=== PATIENT | female | born 1965 | race Caucasian/White ===

== ENCOUNTER 2023-12-26 15:57 | Inpatient (IN) | payer MEDICAID ==
[~2023-12-26] VITALS: Ht 165.1 cm; Wt 65.4 kg
[2023-12-26] MEDS: IV NS 0.9% 1,000 ML BAG IV ONE (16:45)
[2023-12-26 16:50] LABS: BASOPHILS % (AUTO) 0.4 % (0.0-2.0); EOSINOPHILS % (AUTO) 0.4 % (0.0-6.0); HEMATOCRIT 24 % (33-45); HEMOGLOBIN 8.4 g/dL (11.5-14.8); LYMPHOCYTES # (AUTO) 0.7 K/uL (0.8-4.8); LYMPHOCYTES % (AUTO) 7.7 % (20.0-44.0); MEAN CORPUSCULAR HEMOGLOBIN 38 PG (26.0-33.0); MEAN CORPUSCULAR HGB CONC 35 g/dl (31.0-36.0); MEAN CORPUSCULAR VOLUME 111 fL (82-100); MONOCYTES # (AUTO) 0.4 K/uL (0.1-1.30); NEUTROPHILS # (AUTO) 7.6 K/uL (1.8-8.9); NEUTROPHILS % (AUTO) 86.5 % (43.0-81.0); PLATELET COUNT (AUTO) 376 K/uL (150-450); RED BLOOD CELL COUNT(AUTO) 2.19 MIL/uL (4.0-5.2); RED CELL DISTRIBUTION WIDTH 17.9 % (11.5-15.0); WHITE BLOOD COUNT (AUTO) 8.8 K/uL (4.3-11.0)
[2023-12-26 17:06] LABS: ALBUMIN 3.2 g/dL (3.4-5.0); BILIRUBIN,DIRECT 0.8 mg/dL (0.0-0.2); BILIRUBIN,TOTAL 1.4 mg/dL (0.2-1.0); CALCIUM, SERUM 9.7 mg/dL (8.5-10.1); CREATININE 1.4 mg/dL (0.6-1.3); TOTAL PROTEIN, SERUM 7.6 g/dL (6.4-8.2)
[2023-12-26 17:08] LABS: POTASSIUM 2.6 mmol/L (3.5-5.1)
[2023-12-26] MEDS ORDERED: POTASSIUM CHLORIDE 20 MEQ TAB.PRT.SR PO ONE (17:29)
[2023-12-26] MEDS: POTASSIUM CHLORIDE 20 MEQ TAB.PRT.SR PO ONE (17:36)
[2023-12-26] MEDS ORDERED: LISI40TA13 PO (18:30)
[2023-12-26] MEDS ORDERED: HYDR25TA4 PO (18:30)
[2023-12-26] MEDS ORDERED: BUSP5TAB3 PO (18:30)
[2023-12-26 18:40] LABS: INR 1.11 (0.91-1.10); PROTHROMBIN TIME 11.3 SECS (9.2-11.1)
[2023-12-26] MEDS ORDERED: MAG HYDROX/AL HYDROX/SIMETH 30 ML UDC PO PRN (19:00)
[2023-12-26] MEDS ORDERED: POLYETHYLENE GLYCOL 3350 17 GM POWD.PACK PO PRN (19:00)
[2023-12-26] MEDS ORDERED: MAGNESIUM HYDROXIDE 30 ML UDC PO PRN (19:00)
[2023-12-26] MEDS ORDERED: Z GUARD REMEDY 4 OZ OINT TP PRN (19:00)
[2023-12-26] MEDS ORDERED: ONDANSETRON HCL/PF 4 MG/2 ML VIAL IVP PRN (19:00)
[2023-12-26 19:30] VITALS: BP 115/61; TEMP 98.8; O2SAT 98
[2023-12-26 20:00] VITALS: BP 106/45; TEMP 97.9; O2SAT 98
[2023-12-26] MEDS: IV NS 0.9% 1,000 ML IV PRN (21:03)
[2023-12-27] VITALS: BP 106/49; TEMP 98.1; O2SAT 95
[2023-12-27 00:09] LABS: CREATININE 1.3 mg/dL (0.6-1.3)
[2023-12-27 00:14] LABS: POTASSIUM 2.5 mmol/L (3.5-5.1)
[2023-12-27] MEDS: POTASSIUM CHLORIDE 20 MEQ TAB.PRT.SR PO ONE ×4 (01:02→16:09)
[2023-12-27] MEDS: SENNOSIDES/DOCUSATE SODIUM 1 TAB TABLET PO PRN (02:31)
[2023-12-27 04:00] VITALS: BP 104/52; TEMP 98.1; O2SAT 97
[2023-12-27 07:33] LABS: CALCIUM, SERUM 8.8 mg/dL (8.5-10.1); CREATININE 1.2 mg/dL (0.6-1.3); PHOSPHORUS 1.6 mg/dL (2.5-4.9)
[2023-12-27 07:41] LABS: THYROID STIMULATING HORMONE 1.41 uIU/mL (0.358-3.74)
[2023-12-27 07:49] LABS: BASOPHILS % (AUTO) 0.5 % (0.0-2.0); EOSINOPHILS # (AUTO) 0.1 K/uL (0.0-0.7); EOSINOPHILS % (AUTO) 1.1 % (0.0-6.0); HEMATOCRIT 21 % (33-45); HEMOGLOBIN 7.1 g/dL (11.5-14.8); LYMPHOCYTES # (AUTO) 0.5 K/uL (0.8-4.8); LYMPHOCYTES % (AUTO) 6.3 % (20.0-44.0); MEAN CORPUSCULAR HEMOGLOBIN 38 PG (26.0-33.0); MEAN CORPUSCULAR HGB CONC 34 g/dl (31.0-36.0); MEAN CORPUSCULAR VOLUME 111 fL (82-100); MONOCYTES # (AUTO) 0.5 K/uL (0.1-1.30); MONOCYTES % (AUTO) 5.5 % (2.0-12.0); NEUTROPHILS # (AUTO) 7.3 K/uL (1.8-8.9); NEUTROPHILS % (AUTO) 86.6 % (43.0-81.0); PLATELET COUNT (AUTO) 325 K/uL (150-450); RED CELL DISTRIBUTION WIDTH 18.2 % (11.5-15.0); WHITE BLOOD COUNT (AUTO) 8.5 K/uL (4.3-11.0)
[2023-12-27 07:54] LABS: RED BLOOD CELL COUNT(AUTO) 1.88 MIL/uL (4.0-5.2)
[2023-12-27 07:56] LABS: MAGNESIUM 0.9 mg/dL (1.8-2.4); POTASSIUM 2.6 mmol/L (3.5-5.1)
[2023-12-27 08:00] VITALS: BP 102/58; TEMP 97.7; O2SAT 97
[2023-12-27] MEDS: PANTOPRAZOLE 40 MG VIAL IV SCH (08:45)
[2023-12-27] MEDS: MAGNESIUM OXIDE 400 MG TABLET PO ONE (08:45)
[2023-12-27] MEDS: Magnesium 1GM/D5W 100ML PREMIX 100 ML IV SCH (08:46)
[2023-12-27] MEDS: THIAMINE HCL 100 MG TABLET PO SCH (08:46)
[2023-12-27] MEDS: LIPASE/PROTEASE/AMYLASE 1 EACH CAPSULE.DR PO SCH (12:35)
[2023-12-27 15:27] LABS: CALCIUM, SERUM 8.3 mg/dL (8.5-10.1); CREATININE 1.1 mg/dL (0.6-1.3); POTASSIUM 3.3 mmol/L (3.5-5.1)
[2023-12-27] MEDS: K PHOS NEUTRAL 250 MG TABLET PO ONE (16:09)
[2023-12-27 16:25] VITALS: BP 86/48; TEMP 98.2; O2SAT 97
[2023-12-27] MEDS ORDERED: OMEP40CA21 PO (18:23)
[2023-12-27 18:29] VITALS: BP 90/60
[2023-12-27 20:55] VITALS: BP 98/60; TEMP 97.9; O2SAT 99
[2023-12-28 00:12] VITALS: BP 90/48; TEMP 97.5; O2SAT 99
[2023-12-28 04:04] VITALS: BP 93/50; TEMP 98.8; O2SAT 98
[2023-12-28 06:34] LABS: ADD URINE CULTURE YES; APPEARANCE,URINE TURBID (CLEAR); BACTERIA,URINE Many /HPF (None Seen); BILIRUBIN,URINE 1+ (NEGATIVE); BLOOD, URINE NEGATIVE Ery/uL (NEGATIVE); COLOR,URINE GREEN (YELLOW); KETONES,URINE NEGATIVE (NEGATIVE); LEUKOCYTE ESTERASE ,URINE 1+ (NEGATIVE); NITRITE, URINE NEGATIVE (NEGATIVE); PH,URINE 6.5 (5.0-8.0); PREGNANCY TEST URINE QUAL NEGATIVE (NEGATIVE); PROTEIN,URINE NEGATIVE (NEGATIVE); SQUAMOUS EPITHELIAL CELL,UR Rare /HPF (None Seen); UGLUCOSE TRACE mg/dL (NEGATIVE); UROBILINOGEN,URINE 0.2 EU/dL (0.2); WBC,URINE 51-80 /HPF (0-3)
[2023-12-28 06:43] LABS: URINE SODIUM, RANDOM < 5 mmol/l (40-220)
[2023-12-28 06:51] LABS: AMPHETAMINE, URINE NEGATIVE (NEGATIVE); BARBITURATE, URINE NEGATIVE (NEGATIVE); BENZODIAZEPINE, URINE NEGATIVE (NEGATIVE); CANNABINOID, URINE NEGATIVE (NEGATIVE); COCCAINE, URINE NEGATIVE (NEGATIVE); OPIATE, URINE NEGATIVE (NEGATIVE); PHENCYCLIDINE SCREEN,URINE NEGATIVE (NEGATIVE)
[2023-12-28 07:38] LABS: CALCIUM, SERUM 9.1 mg/dL (8.5-10.1); CREATININE 0.9 mg/dL (0.6-1.3); MAGNESIUM 1.4 mg/dL (1.8-2.4); POTASSIUM 4.4 mmol/L (3.5-5.1)
[2023-12-28 07:48] LABS: THYROID STIMULATING HORMONE 2.5 uIU/mL (0.358-3.74); URIC ACID 5.6 mg/dL (2.6-7.2)
[2023-12-28] MEDS: PANTOPRAZOLE 40 MG TABLET.DR PO SCH (08:06)
[2023-12-28 08:18] VITALS: BP 93/84; TEMP 98.4; O2SAT 98
[2023-12-28] MEDS ORDERED: POTASSIUM PHOSPHATE MM 15 MMOL in IV NS 0.9% 250 ML IV SCH (08:30)
[2023-12-28] MEDS ORDERED: NEUTRA PHOS 1 POWD.PACKET PO ONE ×2 (09:00→13:00)
[2023-12-28] MEDS ORDERED: Magnesium 1GM/D5W 100ML PREMIX PIGGYBACK IV ONE (09:00)
[2023-12-28] MEDS: CEFTRIAXONE 1 G in IV D5W 50 ML IV SCH (09:26)
[2023-12-28] MEDS: NEUTRA PHOS 1 POWD.PACKET PO ONE (09:45)
[2023-12-28] MEDS: POTASSIUM PHOSPHATE MM 7.5 MMOL in IV NS 0.9% 100 ML IV SCH (09:49)
[2023-12-28] MEDS: Magnesium 1GM/D5W 100ML PREMIX 100 ML IV SCH (09:50)
[2023-12-28 12:00] VITALS: BP 99/48; TEMP 97.9; O2SAT 99
[2023-12-28 16:00] VITALS: BP 97/59; TEMP 98.8; O2SAT 100
[2023-12-28 20:12] VITALS: BP 96/52; TEMP 97.9; O2SAT 100
[2023-12-28] MEDS: ACETAMINOPHEN 325 MG TABLET PO PRN (23:40)
[2023-12-29 00:05] VITALS: BP 100/64; TEMP 97.7; O2SAT 100
[2023-12-29 04:05] VITALS: BP 97/54; TEMP 97.7; O2SAT 98
[2023-12-29 06:29] LABS: CALCIUM, SERUM 8.5 mg/dL (8.5-10.1); CREATININE 0.9 mg/dL (0.6-1.3)
[2023-12-29 08:00] VITALS: BP 99/53; TEMP 98; O2SAT 99
[2023-12-29] MEDS ORDERED: CEPH-570 PO (08:28)
== END 2023-12-29 09:30 | disposition home or self-care (01) | DRG 426 ==
LOC: ER 16:02 → MED 17:52 → TELE 19:25
PROVIDERS: ADMIT Nurse Practitioner Acute Care; ATTEND Nurse Practitioner Acute Care
DX: E87.1 Hypo-osmolality and hyponatremia (principal); N17.0 Acute kidney failure with tubular necrosis; E44.0 Moderate protein-calorie malnutrition; E83.39 Other disorders of phosphorus metabolism; K86.81 Exocrine pancreatic insufficiency; E88.09 Other disorders of plasma-protein metabolism, not elsewhere classified; K76.0 Fatty (change of) liver, not elsewhere classified; E87.6 Hypokalemia; K59.00 Constipation, unspecified; D53.9 Nutritional anemia, unspecified; E83.42 Hypomagnesemia; I10 Essential (primary) hypertension; N39.0 Urinary tract infection, site not specified; Z87.891 Personal history of nicotine dependence; Z88.0 Allergy status to penicillin; R53.1 Weakness; F10.10 Alcohol abuse, uncomplicated; K82.4 Cholesterolosis of gallbladder; B96.89 Other specified bacterial agents as the cause of diseases classified elsewhere; K86.1 Other chronic pancreatitis
CPT/HCPCS: 36415; 76705-TC; 76770-TC; 80048-TC; 80076-TC; 81001; 83690-TC; 83735-TC; 83935-TC; 84100-TC; 84300-TC; 84443-TC; 84550-TC; 84703-TC; 85025-TC; 85610-TC; 86850-TC; 87086-TC; 97110-TC; 97116-TC; 97530-TC; A4223; G0378; G0480; J0696; J2470; J3475; J3490; J7030; J7060

== ENCOUNTER 2024-07-11 16:15 | Inpatient (IN) | payer MEDICAID ==
[~2024-07-11] VITALS: Ht 165.1 cm; Wt 63.5 kg
[~2024-07-11 16:15] MED LIST: BUSP5TAB3 PO; CEPH-570 PO; LISI40TA13 PO; OMEP40CA21 PO
[2024-07-11 17:05] LABS: BASOPHILS # (AUTO) 0.4 K/uL (0.0-0.2); BASOPHILS % (AUTO) 5.3 % (0.0-2.0); EOSINOPHILS # (AUTO) 0.2 K/uL (0.0-0.7); EOSINOPHILS % (AUTO) 3.2 % (0.0-6.0); HEMATOCRIT 21 % (33-45); HEMOGLOBIN 7.3 g/dL (11.5-14.8); LYMPHOCYTES # (AUTO) 1.3 K/uL (0.8-4.8); LYMPHOCYTES % (AUTO) 19.5 % (20.0-44.0); MEAN CORPUSCULAR HEMOGLOBIN 35 PG (26.0-33.0); MEAN CORPUSCULAR HGB CONC 34 g/dl (31.0-36.0); MEAN CORPUSCULAR VOLUME 103 fL (82-100); MONOCYTES # (AUTO) 0.8 K/uL (0.1-1.30); MONOCYTES % (AUTO) 11.2 % (2.0-12.0); NEUTROPHILS # (AUTO) 4.2 K/uL (1.8-8.9); NEUTROPHILS % (AUTO) 60.8 % (43.0-81.0); PLATELET COUNT (AUTO) 255 K/uL (150-450); RED BLOOD CELL COUNT(AUTO) 2.08 MIL/uL (4.0-5.2); WHITE BLOOD COUNT (AUTO) 6.9 K/uL (4.3-11.0)
[2024-07-11 17:14] LABS: CALCIUM, SERUM 8.4 mg/dL (8.5-10.1); CREATININE 1.1 mg/dL (0.6-1.3); POTASSIUM 3.8 mmol/L (3.5-5.1)
[2024-07-11 17:20] LABS: ALBUMIN 2.3 g/dL (3.4-5.0); BILIRUBIN,TOTAL 2.1 mg/dL (0.2-1.0); TOTAL PROTEIN, SERUM 6.3 g/dL (6.4-8.2)
[2024-07-11 17:49] LABS: INR 1.41 (0.91-1.10); PARTIAL THROMBOPLASTIN TIME 27.7 SEC (24.3-34.3); PROTHROMBIN TIME 14.6 SECS (9.2-11.1)
[2024-07-11] MEDS ORDERED: PROP10TA68 PO (17:54)
[2024-07-11] MEDS ORDERED: LACT10SO3 PO (17:54)
[2024-07-11] MEDS ORDERED: RIFA550T PO (17:54)
[2024-07-11] MEDS ORDERED: TRAZ-257 PO (17:54)
[2024-07-11] MEDS ORDERED: SPIR50TA PO (17:54)
[2024-07-12] VITALS (10 sets, daily range): BP systolic 101–135; BP diastolic 60–85; TEMP 97.5–98.4; O2SAT 97–99
[2024-07-12] MEDS ORDERED: ACETAMINOPHEN 325 MG TABLET PO PRN (07:30)
[2024-07-12] MEDS ORDERED: ONDANSETRON HCL/PF 4 MG/2 ML VIAL IV PRN (08:00)
[2024-07-12] MEDS: SPIRONOLACTONE 25 MG TABLET PO SCH (08:32)
[2024-07-12] MEDS: PROPRANOLOL HCL 10 MG TABLET PO SCH (08:32)
[2024-07-12] MEDS: RIFAXIMIN 550 MG TABLET PO SCH (08:33)
[2024-07-12 10:45] LABS: BASOPHILS # (AUTO) 0.1 K/uL (0.0-0.2); BASOPHILS % (AUTO) 1.3 % (0.0-2.0); EOSINOPHILS # (AUTO) 0.2 K/uL (0.0-0.7); EOSINOPHILS % (AUTO) 2.2 % (0.0-6.0); HEMATOCRIT 23 % (33-45); HEMOGLOBIN 7.6 g/dL (11.5-14.8); LYMPHOCYTES # (AUTO) 0.8 K/uL (0.8-4.8); MEAN CORPUSCULAR HEMOGLOBIN 35 PG (26.0-33.0); MEAN CORPUSCULAR HGB CONC 34 g/dl (31.0-36.0); MEAN CORPUSCULAR VOLUME 105 fL (82-100); MONOCYTES # (AUTO) 1.7 K/uL (0.1-1.30); MONOCYTES % (AUTO) 24.3 % (2.0-12.0); NEUTROPHILS # (AUTO) 4.3 K/uL (1.8-8.9); NEUTROPHILS % (AUTO) 61.2 % (43.0-81.0); PLATELET COUNT (AUTO) 252 K/uL (150-450); RED BLOOD CELL COUNT(AUTO) 2.16 MIL/uL (4.0-5.2); RED CELL DISTRIBUTION WIDTH 24.6 % (11.5-15.0)
[2024-07-12 11:02] LABS: ALBUMIN 2.3 g/dL (3.4-5.0); BILIRUBIN,TOTAL 2.6 mg/dL (0.2-1.0); CALCIUM, SERUM 8.6 mg/dL (8.5-10.1); POTASSIUM 4.1 mmol/L (3.5-5.1); TOTAL PROTEIN, SERUM 6.6 g/dL (6.4-8.2)
[2024-07-12] MEDS: LACTULOSE 10 G/15 ML UDC (PYXIS) PO SCH (12:19)
[2024-07-12] MEDS ORDERED: SPIRONOLACTONE 25 MG TABLET PO SCH (17:00)
[2024-07-12] MEDS ORDERED: RIFAXIMIN 550 MG TABLET PO SCH (17:00)
[2024-07-12] MEDS ORDERED: PROPRANOLOL HCL 10 MG TABLET PO SCH (17:00)
[2024-07-12] MEDS ORDERED: TRAZODONE 50 MG TABLET PO SCH (22:00)
[2024-07-12 22:28] LABS: THYROID STIMULATING HORMONE 1.275 uIU/mL (0.358-3.74)
== END 2024-07-12 13:44 | disposition left against medical advice (07) | DRG 280 ==
LOC: ER 16:20 → TELE1 07-12 04:32 → MEDSG1 07-12 08:03
PROVIDERS: ADMIT Internal Medicine; ATTEND Internal Medicine
PROC: 30233N1 Transfusion of Nonautologous Red Blood Cells into Peripheral Vein, Percutaneous Approach (ICD-10-PCS; principal; 2024-07-12)
DX: K70.31 Alcoholic cirrhosis of liver with ascites (principal); E44.0 Moderate protein-calorie malnutrition; E87.1 Hypo-osmolality and hyponatremia; E88.09 Other disorders of plasma-protein metabolism, not elsewhere classified; I10 Essential (primary) hypertension; J45.909 Unspecified asthma, uncomplicated; Z88.0 Allergy status to penicillin; Z68.23 Body mass index [BMI] 23.0-23.9, adult; R04.0 Epistaxis; D53.9 Nutritional anemia, unspecified; Z20.822 Contact with and (suspected) exposure to COVID-19; F10.21 Alcohol dependence, in remission; Z53.20 Procedure and treatment not carried out because of patient's decision for unspecified reasons
CPT/HCPCS: 36415; 71045-TC; 80048-TC; 80053-TC; 80076-TC; 82140-TC; 82607-TC; 83540-TC; 83690-TC; 84443-TC; 85025-TC; 85730-TC; 86850-TC; 87081-TC; A4217; G0378; J7050; P9016